=== PATIENT | male | born 1950 | race Caucasian/White ===

== ENCOUNTER 2022-04-26 19:23 | Emergency (ER) | payer MEDICARE ==
[~2022-04-26] VITALS: Ht 170.2 cm; Wt 139.5 kg
[2022-04-26 19:54] VITALS: BP 157/97; TEMP 98.2
[2022-04-26] MEDS ORDERED: CIPRO 500MG TA500 MG PO (22:57)
[2022-04-26 23:40] VITALS: PULSE 88
== END 2022-04-26 23:42 | disposition home or self-care (01) ==
LOC: COL.ER 19:23
DX: S60.352A Superficial foreign body of left thumb, initial encounter (principal); S67.02XA Crushing injury of left thumb, initial encounter; Z28.311 Partially vaccinated for COVID-19; Z23 Encounter for immunization; W45.8XXA Other foreign body or object entering through skin, initial encounter